=== PATIENT | female | born 1975 | race Caucasian/White ===

== ENCOUNTER 2023-05-02 13:30 | Outpatient (CLI) | payer MEDICARE, MEDICAID, SELFPAY ==
--- NOTE | ~2023-05-02 | XR_ITS ---
XR hip BI wo pelvis 05/02/2023 14:16 Indication: Bilateral hip pain Procedure: 2 views each hip Comparison: 05/02/2016 Findings: No fracture, subluxation or dislocation. No significant soft tissue abnormality. No foreign bodies. Impression: 1: No significant bone or joint abnormality. Reviewed, dictated and finalized at [facility] L. ING COACH Impression: 1: No significant bone or joint abnormality.
--- NOTE | ~2023-05-02 | XR_ITS ---
XR_[id number], XR_[id number] 05/02/2023 14:17 Indication: Bilateral knee pain Procedure: 2 views each knee Comparison: No prior studies for comparison. Findings: No fracture, subluxation or dislocation. No significant joint effusion. No foreign bodies. Impression: 1: No significant bone or joint abnormality. Reviewed, dictated and finalized at location L. L VIAL SEALER Impression: 1: No significant bone or joint abnormality. Impression: 1: No significant bone or joint abnormality.
--- NOTE | ~2023-05-02 | XR_ITS ---
XR lumbar spine 2-3V 05/02/2023 14:17 Indication: Back pain Procedure: 3 views lumbar spine Comparison: Comparison to multiple prior studies sequentially, with oldest reviewed study dated 07/11. Findings: There is disc narrowing at all lumbar levels. Vertebral body heights are maintained. Pedicl es intact. Nonobstructive bowel gas pattern. There is facet hypertrophy at L3-4 through L5-S1. Impression: 1: Mild-moderate lumbar spondylosis. Reviewed, dictated and finalized at location L. AL TESTER Impression: 1: Mild-moderate lumbar spondylosis.
== END 2023-05-02 13:31 | disposition home or self-care (01) ==
PROVIDERS: PCP Pain Medicine Interventional Pain Medicine; Visit Provider Pain Medicine Interventional Pain Medicine
DX: F31.9 Bipolar disorder, unspecified (principal); M51.36 Other intervertebral disc degeneration, lumbar region; M51.37 Other intervertebral disc degeneration, lumbosacral region; Z13.89 Encounter for screening for other disorder; M47.27 Other spondylosis with radiculopathy, lumbosacral region; M25.551 Pain in right hip; M25.552 Pain in left hip; M25.561 Pain in right knee; M25.562 Pain in left knee
CPT/HCPCS: 72100; 73521; 73560